=== PATIENT | female | born 1980 | race Caucasian/White ===

== ENCOUNTER → 2022-11-24 14:45 | Outpatient (CLI) | payer OTHER, SELFPAY ==
--- NOTE | 2022-11-24 14:47 | DI.MRI.S_ITS ---
PROCEDURE: MR LUMBAR SPINE WO CON INDICATIONS: radicular low back pain, XR unrevealing, failed PT TECHNIQUE: Noncontrast sagittal T1 spin echo and T2 fast echo, sagittal STIR, and T2 fast spin echo through the lumbar spine. In cases with scoliosis, additional coronal T2 fast spin echo may be performed. COMPARISON: None. FINDINGS: Image quality: Excellent. Alignment and Curvature: There is normal bony alignment. Bone Marrow: Marrow is of normal overall signal. No acute vertebral body compression fractures. Spinal Cord: Conus medullaris terminates at the L1 level. Visualized cord demonstrates normal signal and size. Paraspinous Soft Tissues: No paravertebral masses. T12-L1: No canal stenosis or foraminal stenosis. L1-L2: No canal stenosis or foraminal stenosis. L2-L3: No canal stenosis or foraminal stenosis. L3-L4: No canal stenosis or foraminal stenosis. L4-L5: Mild disc bulge. Facet hypertrophy. No significant canal stenosis. There is a left foraminal annulus tear immediately subjacent to the exiting left L4 nerve root. There is mild left foraminal narrowing. L5-S1: There is a moderate, relatively broad-based left paracentral disc protrusion which impinges on the left S1 nerve root in the left lateral recess. There is mild central canal stenosis. Mild facet hypertrophy. No significant foraminal narrowing. IMPRESSION: 1. A moderate, relatively broad-based left paracentral disc protrusion at L5-S1 impinges on the left S1 nerve root in the left lateral recess, likely resulting in left sciatica symptoms. 2. Annulus tear in the left foramen subjacent to the left L4 nerve root can potentially result in a left L4 radiculitis. Question: Does this patient have any symptomatology of a left L4 radiculitis? Dictated by: James Brasher M.D. on 11/25/2022 at 11:42 Approved by: James Brasher M.D. on 11/25/2022 at 11:48
== END ==
PROVIDERS: PCP Family Medicine; Referring Provider Family Medicine; Visit Provider Family Medicine
DX: M51.17 Intervertebral disc disorders with radiculopathy, lumbosacral region (principal); G89.29 Other chronic pain
CPT/HCPCS: 72148

== ENCOUNTER → 2022-12-18 11:05 | Outpatient (CLI) | payer OTHER, SELFPAY ==
--- NOTE | 2022-12-18 11:06 | DI.MG.S_ITS ---
BILATERAL DIGITAL SCREENING MAMMOGRAM 3D/2D WITH CAD: 12/18/2022 CLINICAL: Baseline exam. Routine screening. No prior exams were available for comparison. Both breasts are heterogeneously dense, which may obscure small masses (category c / 51-75% glandular tissue). Current study was also evaluated with a Computer Aided Detection (CAD) system. No significant masses, calcifications, or other findings are seen in either breast. IMPRESSION: NEGATIVE There is no mammographic evidence of malignancy. A 1 year screening mammogram is recommended. Based on the Tyrer Cuzick model (a risk assessment model) the patient's lifetime risk is 14.6% and her 10 year risk is 2.0%. According to the ACR, ACS, and NCCN guidelines, an annual breast MRI exam along with mammogram is recommended if the patient's lifetime risk is 20% or greater. This exam was interpreted at Station ID: [id number]. NOTE: For mammograms, a report in lay terms will be sent to the patient. Approximately 15% of breast malignancies will not be visualized mammographically. In the management of a palpable breast mass, a negative mammogram must not discourage biopsy of a clinically suspicious lesion. Electronically Signed By: Ash Kim M.D., jr/leandro:12/19/2022 13:16:21 letter sent: Normal Exam ACR BI-RADS Category 1: Negative 3341F
== END ==
PROVIDERS: PCP Family Medicine; Referring Provider Family Medicine; Visit Provider Family Medicine
DX: Z12.31 Encounter for screening mammogram for malignant neoplasm of breast (principal)
CPT/HCPCS: 77063; 77067

== ENCOUNTER → 2023-01-09 14:21 | Outpatient (CLI) | payer OTHER, SELFPAY ==
--- NOTE | 2023-01-09 14:23 | DI.RAD.S_ITS ---
PROCEDURE: XR LUMBAR SPINE MIN 4V INDICATIONS: back pain TECHNIQUE: 5 views of the lumbar spine acquired, including oblique views. COMPARISON: None. FINDINGS: Bones: 5 nonrib-bearing vertebrae are present. Slight rightward curvature. Moderate disc height loss at L5-S1. Grade 1 retrolisthesis of L2 on L3. Soft tissues: Overlying bowel gas pattern is normal. No suspicious soft tissue calcifications. Oblique: No significant facet arthrosis. IMPRESSION: 1. Moderate disc height loss at L5-S1. 2. Grade 1 retrolisthesis of L2 Dictated by: Joel Sierra M.D. on 01/09/2023 at 15:25 Approved by: Joel Sierra M.D. on 01/09/2023 at 15:26
== END ==
PROVIDERS: PCP Family Medicine; Referring Provider Physical Medicine & Rehabilitation; Visit Provider Physical Medicine & Rehabilitation
DX: M43.16 Spondylolisthesis, lumbar region (principal); M51.36 Other intervertebral disc degeneration, lumbar region; M54.42 Lumbago with sciatica, left side; G89.29 Other chronic pain
CPT/HCPCS: 72110

== ENCOUNTER 2023-01-30 14:22 | Outpatient (CLI) | payer OTHER, SELFPAY ==
[2023-01-30] VITALS (8 sets, daily range): BP systolic 138–172; BP diastolic 64–87; PULSE 70–84; RESP 11–18; TEMP 36.5; O2SAT 98–100
--- NOTE | 2023-01-30 14:24 | DI.RAD.S_ITS ---
PROCEDURE: PAIN L INTERLAMINAR/CAUDAL INJ INDICATIONS: SPONDYLOSIS COMPARISON: None. FINDINGS: Fluoroscopic spot filming was performed to verify placement of spinal needles at the left L5-S1 level(s), as labeled on the films. Appropriate location(s) of the needle tip(s) was confirmed by injection of iodinated contrast. IMPRESSION: Intraprocedural fluoroscopy was provided for guidance and anatomical localization. Please see the procedure report for further details. Dictated by: López Slater M.D. on 01/30/2023 at 17:40 Approved by: López Slater M.D. on 01/30/2023 at 17:41
[2023-01-30] MEDS: MIDAZOLAM 2 MG/2 ML VIAL IV (15:29)
[2023-01-30] MEDS: BETAMETHASONE 30 MG/5 ML MDV 6 MG INJ (15:34)
[2023-01-30] MEDS: BUPIVACAINE 0.25% (PF) VIAL 2 ML INJ (15:34)
[2023-01-30] MEDS: DEXAMETHASONE 10 MG/ML VIAL 20 MG INJ (15:34)
[2023-01-30] MEDS: IOPAMIDOL 15 ML VIAL 3 ML INJ (15:35)
--- NOTE | 2023-01-30 15:45 | P.PCN_ITS ---
Date/Time/Diagnoses Date of procedure: 01/30/23 Time of procedure: 15:45 Pre-procedure diagnosis: 1. HNP WITH RADICULAR FEATURES, 2. MULTILEVEL CENTRAL STENOSIS, Post-procedure diagnosis: same Procedure Notes Procedure: 1. FLUOROSCOPICALLY GUIDED CONTRAST CONTROLLED INTERLAMINAR EPIDURAL STEROID INJECTION - L5/S1 Indications: Franny is referred by Dr. Childers for treatment of Bilateral Foraminal Stenosis L>R LE symptoms. Physician: Alvarez Diaz Total Fluoroscopy time (seconds): 7 Total sedation minutes: 11 Complications: none Procedure in detail & Post-procedure care: FINDINGS Multilevel Central Spinal Stenosis with Nerve Root Compression DESCRIPTION OF PROCEDURE Fluoroscopically guided, contrast-controlled L5/S1 translaminar epidural steroid injection. Following review of allergy and review of potential side effects and complications, including, but not necessarily limited to, infection, allergic reaction, local tissue breakdown, temporary as well as permanent nerve injury, paralysis, stroke and possible , the patient indicated that the patient understood and agreed to proceed. An informed consent document was signed by the patient, witnessed by a nurse, and placed in the patient's chart. Additionally, other treatment options including modalities, medications, and physical therapy were reviewed with the patient. After review of previous anaesthesic history and IV conscious sedation the patient was deemed safe to proceed with today?s procedure with IV conscious sedation as ASA class II designation. Safety time-out was performed to confirm patient ID, procedure to be performed and site of procedure. IV sedation was accomplished with a combination of 2mg of Versed administered by the RN after DO order, titrated to patient comfort during the course of the procedure while the patient remained responsive to all verbal commands. In the prone position, following sterile prep and drape of the lumbar region, the L5/S1 translaminar space was identified fluoroscopically. The skin was anesthetized via a 25-gauge, 1.5-inch needle with 1% lidocaine solution. At this point, a 22-gauge short bevel spinal needle was atraumatically introduced and advanced under fluoroscopic guidance into the region of the L5/S1 translaminar space. Depth was confirmed on lateral view. Radiological data, including multiple fluoroscopic views of the lumbar spine, reveal a spinal needle at the L5/S1 translaminar space. Lateral views then show placement of the needle in the epidural space. Subsequent views show contrast material flowing superiorly and inferiorly in the epidural space. No vascular or intrathecal uptake is observed. At this point, using loss of resistance technique with saline and air, the epidural space was entered. This was confirmed following negative aspiration with injection of approximately 1.5cc of Isovue 200, showing excellent epidural flow without vascular or intrathecal uptake. At this point, 1 cc of 1% lidocain e solution combined with 3cc or 20mg of dexamethasone and 6mg of betamethasone was injected without incident. The patent tolerated the procedure without signs of symptoms of complications prior to transfer to the recovery area for further monitoring. The patient was then transferred to the recovery area where they were observed for an appropriate period of time after the injection. The patient reported a VAS score of 6 prior to the procedure and a post-procedure VAS of 0. POST OP INSTRUCTIONS The patient was provided a Pain Log to continue to record their response to the target-specific procedure prior to follow-up visit with their referring physician. Additionally, specific post-injection care instructions and a contact number to our office were provided if concerns arise regarding possible complications associated with the procedure are suspected.
== END 2023-01-30 16:03 | disposition home or self-care (01) ==
LOC: RAD 14:23
PROVIDERS: PCP Family Medicine; Referring Provider Physical Medicine & Rehabilitation; Visit Provider Physical Medicine & Rehabilitation
DX: M51.17 Intervertebral disc disorders with radiculopathy, lumbosacral region (principal); M48.07 Spinal stenosis, lumbosacral region
CPT/HCPCS: 62323; 99152; J0702; J1100; J2250; J3490

== ENCOUNTER → 2023-04-15 07:26 | Outpatient (CLI) | payer OTHER, SELFPAY ==
[2023-04-15 07:55] LABS: Hematocrit 40.8 % (36-46); Mean Corpuscular HGB Conc 34.4 % (30-36); Mean Corpuscular Hemoglobin 31.1 PG (26-34); Mean Corpuscular Volume 90.5 fL (80-100); Platelet Count 317 X10^3/uL (150-400); Red Cell Distribution Width 13.1 % (11.6-14.8)
[2023-04-15 08:13] LABS: Alanine Aminotransferase 35 IU/L (<35); Albumin 4.6 g/dL (3.5-5.0); Albumin Globulin Ratio 1.4 (1.0-2.8); Alkaline Phosphatase 70 U/L (38-126); Aspartate Aminotransferase 26 IU/L (14-36); BUN Creatinine Ratio 22.2 (6-22); Bilirubin Total 0.4 mg/dL (0.2-1.3); Blood Urea Nitrogen 16 mg/dL (7-17); Calcium 9.2 mg/dL (8.4-10.2); Carbon Dioxide 27 mmol/L (22-32); Chloride 102 mmol/L (98-107); Cholesterol 253 mg/dL (140-199); Estimated Glomerular Filt Rate > 60 mL/min (>60); Globulin 3.3 g/dL (1.7-4.1); Glucose 104 mg/dL (70-100); HDL Cholesterol 43 mg/dL (40-60); HEMOLYSIS < 15 (0-50); LDL Cholesterol Calculated 152 mg/dL (<100); Potassium 4.6 mmol/L (3.4-5.1); Sodium 136 mmol/L (137-145); Total Protein 7.9 g/dL (6.3-8.2); Triglycerides 290 mg/dL (35-150)
[2023-04-15 08:16] LABS: High Sensitivity CRP - Cardiac 4.1 mg/L (1.0-3.0)
[2023-04-15 08:44] LABS: Free T3, Triiodothyronine Free 3.63 pg/mL (2.77-5.27); Free T4, Direct Thyroxine 0.72 ng/dL (0.78-2.19)
[2023-04-15 08:57] LABS: Thyroid Stimulating Hormone 2.47 uIU/mL (0.47-4.68)
[2023-04-16 07:02] LABS: Labcorp Hemoglobin (Hb) A1c 5.9 % (4.8-5.6)
== END ==
PROVIDERS: PCP Family Medicine; Referring Provider Family Medicine; Visit Provider Family Medicine
DX: E03.9 Hypothyroidism, unspecified (principal); E66.9 Obesity, unspecified; E78.5 Hyperlipidemia, unspecified; M51.27 Other intervertebral disc displacement, lumbosacral region; M54.17 Radiculopathy, lumbosacral region; R73.03 Prediabetes
CPT/HCPCS: 36415; 80053; 80061; 83036; 84439; 84443; 84481; 85027; 86140

== ENCOUNTER → 2023-12-31 08:03 | Outpatient (CLI) | payer OTHER, SELFPAY ==
--- NOTE | 2023-12-31 08:04 | DI.MG.S_ITS ---
BILATERAL DIGITAL SCREENING MAMMOGRAM 3D/2D WITH CAD: 12/31/2023 CLINICAL: Routine screening. Comparison is made to exam dated: 12/18/2022 mammogram - [facility]. Both breasts are heterogeneously dense, which may obscure small masses (category c / 51-75% glandular tissue). Current study was also evaluated with a Computer Aided Detection (CAD) system. No significant masses, calcifications, or other findings are seen in either breast. There has been no significant interval change. IMPRESSION: NEGATIVE There is no mammographic evidence of malignancy. A 1 year screening mammogram is recommended. Based on the Tyrer Cuzick model (a risk assessment model) the patient's lifetime risk is 14.5% and her 10 year risk is 2.2%. According to the ACR, ACS, and NCCN guidelines, an annual breast MRI exam along with mammogram is recommended if the patient's lifetime risk is 20% or greater. This exam was interpreted at Station ID: [id number]. NOTE: For mammograms, a report in lay terms will be sent to the patient. Approximately 15% of breast malignancies will not be visualized mammographically. In the management of a palpable breast mass, a negative mammogram must not discourage biopsy of a clinically suspicious lesion. Electronically Signed By: Juarez munoz/leandro:12/31/2023 15:01:47 letter sent: Normal Exam ACR BI-RADS Category 1: Negative 3341F
[2023-12-31 09:02] LABS: Add Manual Diff / Slide Review NO; Basophils Absolute Auto 100 /uL (0-100); Basophils Percent Auto 0.8 % (0-2); Eosinophils Absolute Auto 500 /uL (0-450); Eosinophils Percent Auto 4.3 % (2-4); Hematocrit 40.2 % (36-46); Hemoglobin 13.7 g/dL (12.0-16.0); Lymphocytes Absolute Auto 3800 /uL (1100-4500); Lymphocytes Percent Auto 34.6 % (25-40); Mean Corpuscular HGB Conc 34.1 % (30-36); Mean Corpuscular Hemoglobin 30.2 PG (26-34); Mean Corpuscular Volume 88.7 fL (80-100); Monocytes Absolute Auto 600 /uL (0-900); Monocytes Percent Auto 5.5 % (3-14); Neutrophils Absolute Auto 6000 /uL (1500-7000); Neutrophils Percent Auto 54.8 % (50-75); Platelet Count 302 X10^3/uL (150-400); Red Blood Cell Count 4.54 X10^6/uL (4.0-5.2); Red Cell Distribution Width 13.1 % (11.6-14.8); White Blood Cell Count 10.9 X10^3/uL (4.5-11.0)
[2023-12-31 09:14] LABS: Hemoglobin A1C% w Est Avg Glu 5.8 % (4.0-6.0)
[2023-12-31 09:32] LABS: Alanine Aminotransferase 24 IU/L (<35); Albumin 4.4 g/dL (3.5-5.0); Albumin Globulin Ratio 1.4 (1.0-2.8); Alkaline Phosphatase 69 U/L (38-126); Aspartate Aminotransferase 24 IU/L (14-36); BUN Creatinine Ratio 21.9 (6-22); Bilirubin Total 0.5 mg/dL (0.2-1.3); Blood Urea Nitrogen 16 mg/dL (7-17); Calcium 9.3 mg/dL (8.4-10.2); Carbon Dioxide 27 mmol/L (22-32); Chloride 104 mmol/L (98-107); Cholesterol 224 mg/dL (140-199); Estimated Glomerular Filt Rate > 60 mL/min (>60); Globulin 3.2 g/dL (1.7-4.1); Glucose 95 mg/dL (70-100); HDL Cholesterol 43 mg/dL (40-60); HEMOLYSIS < 15 (0-50); LDL Cholesterol Calculated 125 mg/dL (<100); Potassium 4.2 mmol/L (3.4-5.1); Sodium 137 mmol/L (137-145); Total Protein 7.6 g/dL (6.3-8.2); Triglycerides 280 mg/dL (35-150)
[2023-12-31 09:36] LABS: High Sensitivity CRP - Cardiac 2.5 mg/L (1.0-3.0)
[2023-12-31 09:43] LABS: Free T3, Triiodothyronine Free 3.44 pg/mL (2.77-5.27); Free T4, Direct Thyroxine 0.75 ng/dL (0.78-2.19)
[2023-12-31 09:57] LABS: Thyroid Stimulating Hormone 1.71 uIU/mL (0.47-4.68)
== END ==
LOC: MAMMO 08:03
PROVIDERS: PCP Family Medicine; Referring Provider Family Medicine; Visit Provider Family Medicine
DX: Z12.31 Encounter for screening mammogram for malignant neoplasm of breast (principal); R92.333 Mammographic heterogeneous density, bilateral breasts; E03.9 Hypothyroidism, unspecified; R73.03 Prediabetes; E78.5 Hyperlipidemia, unspecified
CPT/HCPCS: 36415; 77063; 77067; 80053; 80061; 83036; 84439; 84443; 84481; 85025; 86140

== ENCOUNTER → 2025-01-12 07:16 | Outpatient (CLI) | payer OTHER, SELFPAY ==
[2025-01-12 07:57] LABS: Alanine Aminotransferase 28 IU/L (<35); Albumin 4.4 g/dL (3.5-5.0); Albumin Globulin Ratio 1.7 (1.0-2.8); Alkaline Phosphatase 53 U/L (38-126); Aspartate Aminotransferase 31 IU/L (14-36); BUN Creatinine Ratio 19.4 (6-22); Bilirubin Total 0.5 mg/dL (0.2-1.3); Blood Urea Nitrogen 14 mg/dL (7-17); Calcium 9.2 mg/dL (8.4-10.2); Carbon Dioxide 21 mmol/L (22-32); Chloride 103 mmol/L (98-107); Cholesterol 185 mg/dL (140-199); Estimated Glomerular Filt Rate > 60 mL/min (>60); Globulin 2.6 g/dL (1.7-4.1); Glucose 88 mg/dL (70-100); HDL Cholesterol 59 mg/dL (40-60); HEMOLYSIS 17 (0-50); LDL Cholesterol Calculated 106 mg/dL (<100); Potassium 4.4 mmol/L (3.4-5.1); Sodium 135 mmol/L (137-145); Triglycerides 101 mg/dL (35-150)
[2025-01-12 07:59] LABS: Hemoglobin A1C% w Est Avg Glu 4.8 % (4.0-6.0)
[2025-01-12 08:14] LABS: Free T3, Triiodothyronine Free 5.07 pg/mL (2.77-5.27); Free T4, Direct Thyroxine 0.47 ng/dL (0.78-2.19)
[2025-01-12 08:28] LABS: Thyroid Stimulating Hormone 0.361 uIU/mL (0.47-4.68)
[2025-01-13 03:39] LABS: CRP, High Sensitivity 0.68 mg/L (0.00-3.00)
[2025-01-13 11:36] LABS: Insulin Level Total 5.9 uIU/mL (2.6-24.9)
== END ==
PROVIDERS: PCP Family Medicine; Referring Provider Family Medicine; Visit Provider Family Medicine
DX: E78.5 Hyperlipidemia, unspecified (principal); Z68.36 Body mass index [BMI] 36.0-36.9, adult; E66.01 Morbid (severe) obesity due to excess calories; R73.03 Prediabetes; E03.9 Hypothyroidism, unspecified
CPT/HCPCS: 36415; 80053; 80061; 83036; 83525; 84439; 84443; 84481; 86140

== ENCOUNTER → 2025-01-14 | Outpatient (CLI) | payer OTHER, SELFPAY ==
--- NOTE | 2025-01-14 13:04 | DI.MG.S_ITS ---
MM screening mammo BI: 01/14/2025. BI-RADS: 1 CLINICAL: 44-year old female for bilateral screening mammogram. Tyrer-Cuzick lifetime risk of 12.7%. No personal or first-degree family history of breast cancer. PRIOR EXAMS 12/31/2023, 12/18/2022. MAMMOGRAPHY TECHNIQUE: 2D and 3D (tomosynthesis) digital mammographic views obtained, with additional images as needed for full coverage. Current study was also evaluated with a Computer Aided Detection (CAD) system. DENSITY C. The breasts are heterogeneously dense, which may obscure small masses. MAMMOGRAPHY FINDINGS Bilateral: No suspicious mass, asymmetry, microcalcification, or other abnormality seen. IMPRESSION: * No evidence of malignancy. RECOMMENDATIONS Bilateral * Annual screening mammography. OVERALL ASSESSMENT CATEGORY BI-RADS-1: Negative. The [employer] recommends annual screening mammography beginning at age 40 for women with average risk of breast cancer. ELECTRONICALLY SIGNED: Bethanie Malagon M.D. on 01/16/2025 at 03:45:05 PM PT Interpreting Station ID: [id number]
== END ==
PROVIDERS: PCP Family Medicine; Referring Provider Family Medicine; Visit Provider Family Medicine
DX: Z12.31 Encounter for screening mammogram for malignant neoplasm of breast (principal); R92.333 Mammographic heterogeneous density, bilateral breasts
CPT/HCPCS: 77063; 77067

== ENCOUNTER → 2025-07-29 10:33 | Outpatient (CLI) | payer OTHER, SELFPAY ==
[2025-07-29 14:49] LABS: Follicle Stimulating Hormone 7.70 mIU/mL; Progesterone, Total 0.54 ng/mL
[2025-08-06 12:10] LABS: Estradiol, Sensitive 56.5 pg/mL (.)
== END ==
PROVIDERS: PCP Family Medicine; Referring Provider Family Medicine; Visit Provider Family Medicine
DX: N95.1 Menopausal and female climacteric states (principal)
CPT/HCPCS: 36415; 82627; 82670; 83001; 84144; 84403